=== PATIENT | male | born 1935 | race Caucasian/White ===

== ENCOUNTER 2017-12-14 12:25 | Emergency (ER) | payer MEDICARE, OTHER ==
[~2017-12-14] VITALS: Ht 170.2 cm; Wt 81.6 kg
[2017-12-14] MEDS ORDERED: SULFAMETH/TRIMETH 800/160 MG TABLET PO ONE (12:45)
[2017-12-14] MEDS ORDERED: SULFAMETH/TRIMETH 800/160 MG TABLET ONE (12:47)
--- NOTE | 2017-12-14 12:47 | NUR ---
PT WAS EVALUATED BY DR COPE. PT WAS D/C TO HOME. D/C INSTRUCTIONS GIVEN TO THE PT.
[2017-12-14 12:49] VITALS: BP 143/76
== END 2017-12-14 12:50 | disposition home or self-care (01) ==
LOC: ER 12:25
DX: S60.463D Insect bite (nonvenomous) of left middle finger, subsequent encounter (principal); L08.9 Local infection of the skin and subcutaneous tissue, unspecified; W57.XXXD Bitten or stung by nonvenomous insect and other nonvenomous arthropods, subsequent encounter
CPT/HCPCS: A4663

== ENCOUNTER 2018-01-01 12:26 | Emergency (ER) | payer MEDICARE, OTHER ==
[~2018-01-01] VITALS: Ht 172.7 cm; Wt 81.6 kg
[2018-01-01] MEDS ORDERED: diphenhydrAMINE 25 MG CAP PO ONE ×2 (13:26→13:35)
--- NOTE | 2018-01-01 13:26 | NUR ---
Dr agosto at the bedside for MSE.
[2018-01-01] MEDS ORDERED: CEPHALEXIN MONOHYDRATE 500 MG CAPSULE PO ONE (13:30)
[2018-01-01] MEDS ORDERED: DEXAMETHASONE SOD PHOSPHATE 4 MG INJ IM ONE (13:30)
[2018-01-01] MEDS ORDERED: DEXAMETHASONE SOD PHOSPHATE 10 MG INJ ONE (13:36)
[2018-01-01] MEDS ORDERED: CEPHALEXIN MONOHYDRATE 500 MG CAPSULE ONE (13:36)
--- NOTE | 2018-01-01 14:39 | NUR ---
PATIENT WAS CHECKED BY DR TERRELL. WILL BE DC HOME
--- NOTE | 2018-01-01 14:48 | NUR ---
Patient discharged to home in stable conditon. Written and verbal after care instructions given. Patient verbalizes understanding of instructions.
[2018-01-01 14:49] VITALS: BP 135/71
== END 2018-01-01 14:49 | disposition home or self-care (01) ==
LOC: ER 12:30
DX: T63.441A Toxic effect of venom of bees, accidental (unintentional), initial encounter (principal); Y92.89 Other specified places as the place of occurrence of the external cause; E11.9 Type 2 diabetes mellitus without complications; E78.00 Pure hypercholesterolemia, unspecified
CPT/HCPCS: 96372; 99283; A4663; J1100; Q0163

== ENCOUNTER 2018-03-12 13:03 | Emergency (ER) | payer MEDICARE, OTHER ==
[~2018-03-12] VITALS: Ht 170.2 cm; Wt 77.1 kg
--- NOTE | 2018-03-12 13:13 | NUR ---
at bedside to see and examine patient.
--- NOTE | 2018-03-12 13:37 | NUR ---
Dcd instructions and prescription given to pt. who verbalized understanding.
== END 2018-03-12 13:40 | disposition home or self-care (01) ==
LOC: ER 13:03
DX: T65.91XA Toxic effect of unspecified substance, accidental (unintentional), initial encounter (principal); E78.00 Pure hypercholesterolemia, unspecified; E11.9 Type 2 diabetes mellitus without complications; Y92.89 Other specified places as the place of occurrence of the external cause
CPT/HCPCS: A4663

== ENCOUNTER 2018-04-09 16:03 | Emergency (ER) | payer MEDICARE, OTHER ==
[~2018-04-09] VITALS: Ht 170.2 cm; Wt 77.1 kg
--- NOTE | 2018-04-09 16:20 | NUR ---
Dr Hawk at the bedside for MSE.
[2018-04-09] MEDS ORDERED: methylPREDNISolone SOD SUCC 125 MG/2 ML VIAL IV ONE (16:30)
[2018-04-09] MEDS ORDERED: FAMOTIDINE. 20 MG/2 ML VIAL IV ONE ×2 (16:30→16:33)
[2018-04-09] MEDS ORDERED: diphenhydrAMINE 50 MG/1 ML VIAL IV ONE (16:30)
[2018-04-09] MEDS ORDERED: diphenhydrAMINE 50 MG/1 ML VIAL ONE (16:31)
[2018-04-09] MEDS ORDERED: methylPREDNISolone SOD SUCC 125 MG/2 ML VIAL ONE (16:32)
--- NOTE | 2018-04-09 16:50 | NUR ---
Patient is resting comfortably in bed with eyes closed. NAD noted.
--- NOTE | 2018-04-09 17:24 | NUR ---
IV removed. Catheter intact and site benign. Pressure and 4x4 gauze applied to site. No bleeding noted.
[2018-04-09 17:38] VITALS: BP 122/70
--- NOTE | 2018-04-09 17:38 | NUR ---
Patient discharged to home in stable conditon. Written and verbal after care instructions given. Patient verbalizes understanding of instructions.
== END 2018-04-09 17:39 | disposition home or self-care (01) ==
LOC: ER 16:03
DX: T63.441A Toxic effect of venom of bees, accidental (unintentional), initial encounter (principal); E78.00 Pure hypercholesterolemia, unspecified; E11.9 Type 2 diabetes mellitus without complications; Y92.89 Other specified places as the place of occurrence of the external cause
CPT/HCPCS: 96374; 96375; 99284; J1200; J2930; J3490; A4663

== ENCOUNTER 2018-04-11 12:10 | Emergency (ER) | payer MEDICARE, OTHER ==
[~2018-04-11] VITALS: Ht 172.7 cm; Wt 81.6 kg
--- NOTE | 2018-04-11 12:18 | NUR ---
Patient discharged to home in stable conditon. Written and verbal after care instructions given. Patient verbalizes understanding of instructions.pt with caregiver.
== END 2018-04-11 12:20 | disposition home or self-care (01) ==
LOC: ER 12:10
DX: R21 Rash and other nonspecific skin eruption (principal); E78.00 Pure hypercholesterolemia, unspecified; E11.9 Type 2 diabetes mellitus without complications
CPT/HCPCS: A4663

== ENCOUNTER 2018-08-28 12:20 | Emergency (ER) | payer MEDICARE, OTHER ==
[~2018-08-28] VITALS: Ht 172.7 cm; Wt 63.5 kg
--- NOTE | 2018-08-28 12:30 | NUR ---
PT A/OX4, PRESENTS TO THE ER W/ SPOUSE AND CAREGIVER, C/O GLF LAST NIGHT. PT REPORTS HE TRIPPED OVER HIS DOG WHILE OUT FOR A WALK LAST NIGHT AND HAD A GLF IN HIS DRIVEWAY, RESULTING IN HEAD INJURY. FALL WAS WITNESSED BY CAREGIVER, AND NO LOC REPORTED. PT C/O BACK PAIN THAT STARTED LAST NIGHT, PROVOKED UPON MOVEMENT, ACHING IN QUALITY, RADIATES DOWN THE BACK, 7/10, CONSTANT. UPON ASSESSMENT, ABRASION ON R ELBOW AND HEMATOMA TO THE OCCIPITAL SCAL NOTED. VSS. PT DENIES C/P, SOB, N/V/D, DIZZINESS, HEADACHE.
--- NOTE | 2018-08-28 12:33 | NUR ---
ADA KLEIN AT BEDSIDE FOR MSE.
[2018-08-28] MEDS ORDERED: INSU100C SQ (12:43)
[2018-08-28] MEDS ORDERED: LEVO125T PO (12:43)
[2018-08-28] MEDS ORDERED: CARB-95 PO (12:43)
[2018-08-28] MEDS ORDERED: TAMS-3 PO (12:43)
[2018-08-28] MEDS ORDERED: INSU100V10 SQ (12:43)
[2018-08-28] MEDS ORDERED: ATOR10TA PO (12:43)
[2018-08-28] MEDS ORDERED: ACETAMINOPHEN ES 500 MG TABLET PO ONE (12:45)
[2018-08-28] MEDS ORDERED: IV NORMAL SALINE 250 ML IV ONE (12:45)
[2018-08-28] MEDS ORDERED: SWABABLE VALVE TRANSFER SET EA MC ONE (12:45)
[2018-08-28] MEDS ORDERED: IOHEXOL 300MG/ML 100 ML INFUS..BTL ONE (12:45)
--- NOTE | 2018-08-28 12:47 | NUR ---
AUDITOR TAX AT BEDSIDE.
[2018-08-28] MEDS ORDERED: ACETAMINOPHEN ES 500 MG TABLET ONE (12:50)
[2018-08-28 12:55] LABS: BASOPHILS % (AUTO) 0.1 % (0.0-2.0); EOSINOPHILS # (AUTO) 0.1 K/uL (0.0-0.7); EOSINOPHILS % (AUTO) 0.5 % (0.0-7.0); HEMATOCRIT 35.8 % (36.7-47.1); LYMPHOCYTES # (AUTO) 1.2 K/uL (20.0-40.0); LYMPHOCYTES % (AUTO) 10.4 % (20.5-51.5); MEAN CORPUSCULAR HEMOGLOBIN 31.2 uug (23.8-33.4); MEAN CORPUSCULAR HGB CONC 33 g/dL (32.5-36.3); MEAN CORPUSCULAR VOLUME 93.7 fL (73.0-96.2); MONOCYTES # (AUTO) 0.9 K/uL (2.0-10.0); MONOCYTES % (AUTO) 7.9 % (0.0-11.0); NEUTROPHILS # (AUTO) 9.1 K/uL (1.8-8.9); NEUTROPHILS % (AUTO) 81.1 % (38.5-71.5); PLATELET COUNT (AUTO) 184 K/uL (152-348); RED BLOOD CELL COUNT(AUTO) 3.83 MIL/uL (4.06-5.63); WHITE BLOOD COUNT (AUTO) 11.2 K/uL (3.6-10.2)
--- NOTE | 2018-08-28 12:55 | NUR ---
REVIEW NURSE AT BEDSIDE.
[2018-08-28 13:05] LABS: BILIRUBIN,DIRECT 0.2 mg/dL (0.0-0.2); BILIRUBIN,TOTAL 0.9 mg/dL (0.2-1.0); TOTAL PROTEIN, SERUM 6.7 g/dL (6.4-8.2)
--- NOTE | 2018-08-28 13:21 | NUR ---
PT TAKEN TO RADIOLOGY FOR CT SCAN.
--- NOTE | 2018-08-28 13:40 | NUR ---
PT BACK IN ER FROM RADIOLOGY.
--- NOTE | 2018-08-28 14:55 | NUR ---
Patient discharged to home in stable conditon. Written and verbal after care instructions given. Patient verbalizes understanding of instructions. ALL BELONGINGS W/ PT. PT SELF-AMBULATED W/O DIFFICULTY. PT D/C UNDER CARE OF SPOUSE AND HISTORIC SITE ADMINISTRATOR.
[2018-08-28 14:56] VITALS: BP 115/79
== END 2018-08-28 14:57 | disposition home or self-care (01) ==
LOC: ER 12:20
DX: S00.03XA Contusion of scalp, initial encounter (principal); S40.211A Abrasion of right shoulder, initial encounter; M54.5 Low back pain; M79.645 Pain in left finger(s); E11.9 Type 2 diabetes mellitus without complications; E78.5 Hyperlipidemia, unspecified; E03.9 Hypothyroidism, unspecified; Z79.4 Long term (current) use of insulin; Z79.899 Other long term (current) drug therapy; Z90.49 Acquired absence of other specified parts of digestive tract; W01.0XXA Fall on same level from slipping, tripping and stumbling without subsequent striking against object, initial encounter; Y93.89 Activity, other specified; Y92.89 Other specified places as the place of occurrence of the external cause; Y99.8 Other external cause status
CPT/HCPCS: 36415; 70450; 71045; 72100; 72125; 73030; 73080; 73130; 80076; 85025; 85730; 93005; 99284; Q9967; A4663; A9150; J7050

== ENCOUNTER 2018-08-29 10:03 | Emergency (ER) | payer MEDICARE, OTHER ==
[~2018-08-29] VITALS: Ht 172.7 cm; Wt 81.6 kg
[~2018-08-29 10:03] MED LIST: ATOR10TA PO; CARB-95 PO; INSU100C SQ; INSU100V10 SQ; LEVO125T PO; TAMS-3 PO
--- NOTE | 2018-08-29 10:29 | NUR ---
PT IS IN ROOM #2A. DR COPE EVALUATED THE PT.
--- NOTE | 2018-08-29 11:24 | NUR ---
PT WAS D/C'd TO HOME. D/C INSTRUCTIONS GIVEN TO THE PT AND TO HIS RELATIVES.
[2018-08-29 11:25] VITALS: BP 152/81
== END 2018-08-29 11:26 | disposition home or self-care (01) ==
LOC: ER 10:03
DX: E11.649 Type 2 diabetes mellitus with hypoglycemia without coma (principal); E78.00 Pure hypercholesterolemia, unspecified; E78.5 Hyperlipidemia, unspecified; E03.9 Hypothyroidism, unspecified; Z90.49 Acquired absence of other specified parts of digestive tract; Z79.899 Other long term (current) drug therapy; Z79.4 Long term (current) use of insulin
CPT/HCPCS: A4663

== ENCOUNTER 2018-11-19 15:23 | Emergency (ER) | payer MEDICARE, OTHER ==
[~2018-11-19] VITALS: Ht 172.7 cm; Wt 81.6 kg
[2018-11-19 17:37] LABS: BASOPHILS # (AUTO) 0.1 K/uL (0.0-8.0); BASOPHILS % (AUTO) 0.5 % (0.0-2.0); EOSINOPHILS # (AUTO) 0.4 K/uL (0.0-0.7); EOSINOPHILS % (AUTO) 3.9 % (0.0-7.0); HEMATOCRIT 38.7 % (36.7-47.1); HEMOGLOBIN 12.8 g/dL (12.5-16.3); LYMPHOCYTES # (AUTO) 2.3 K/uL (20.0-40.0); LYMPHOCYTES % (AUTO) 24.2 % (20.5-51.5); MEAN CORPUSCULAR HEMOGLOBIN 30.8 uug (23.8-33.4); MEAN CORPUSCULAR HGB CONC 33 g/dL (32.5-36.3); MEAN CORPUSCULAR VOLUME 93.1 fL (73.0-96.2); MONOCYTES # (AUTO) 0.8 K/uL (2.0-10.0); MONOCYTES % (AUTO) 8.5 % (0.0-11.0); NEUTROPHILS % (AUTO) 62.9 % (38.5-71.5); PLATELET COUNT (AUTO) 203 K/uL (152-348); RED BLOOD CELL COUNT(AUTO) 4.16 MIL/uL (4.06-5.63); WHITE BLOOD COUNT (AUTO) 9.6 K/uL (3.6-10.2)
[2018-11-19 17:43] LABS: CARBON DIOXIDE 28 mmol/L (21-32); CHLORIDE 109 mmol/L (98-107); GLUCOSE 71 mg/dL (74-106); POTASSIUM 3.8 mmol/L (3.5-5.1); UREA NITROGEN, BLOOD 17 mg/dL (7-18)
[2018-11-19 17:46] LABS: *BILIRUBIN,URIN NEGATIVE (NEGATIVE); *BLOOD, URINE NEGATIVE (NEGATIVE); *CLARITY,URINE CLEAR (CLEAR); *COLOR,URINE YELLOW (YELLOW); *KETONES,URINE NEGATIVE (NEGATIVE); *UROBILINOGEN,URINE 0.2 E.U./dl (NORMAL); LEUKOCYTE ESTERASE ,URINE NEGATIVE (NEGATIVE); NITRITE, URINE NEGATIVE (NEGATIVE); UGLUCOSE NEGATIVE (NEGATIVE)
[2018-11-19 17:49] LABS: ALANINE AMINOTRANSFERASE 19 U/L (16-63); ALKALINE PHOSPHATASE 97 U/L (50-136); ASPARTATE AMINOTRANSFERASE 17 U/L (15-37); BILIRUBIN,DIRECT 0.1 mg/dL (0.0-0.2); BILIRUBIN,TOTAL 0.5 mg/dL (0.2-1.0); TOTAL PROTEIN, SERUM 7.5 g/dL (6.4-8.2)
--- NOTE | 2018-11-19 18:42 | NUR ---
[facility] FOOD PROVIDED FOR PT. PT WEB PRESS OPERATOR AT BESIDE TO HELP THE PT TO EAT.
--- NOTE | 2018-11-19 18:50 | NUR ---
Patient discharged to home in stable conditon. Written and verbal after care instructions given. Patient verbalizes understanding of instructions.PT ACCOMPANIED BY TRANSPORTATION SPECIALIST. COPY OF AL [employer] STUDIES PROVIDED FOR PT. PT IS FOLLOWING UP WITH ACCOUNT MANAGER EDUCATION TOMORROW.
[2018-11-19 18:51] VITALS: BP 119/61
== END 2018-11-19 18:51 | disposition home or self-care (01) ==
LOC: ER 15:23
DX: S13.4XXA Sprain of ligaments of cervical spine, initial encounter (principal); S49.91XA Unspecified injury of right shoulder and upper arm, initial encounter; E78.00 Pure hypercholesterolemia, unspecified; E11.9 Type 2 diabetes mellitus without complications; E78.5 Hyperlipidemia, unspecified; Z79.4 Long term (current) use of insulin; Z79.899 Other long term (current) drug therapy; W01.0XXA Fall on same level from slipping, tripping and stumbling without subsequent striking against object, initial encounter; Y93.89 Activity, other specified; Y92.89 Other specified places as the place of occurrence of the external cause; Y99.8 Other external cause status
CPT/HCPCS: 36415; 70030-TC; 71045; 72125; 73030; 85025; 85730; 87086; 93005; A4663

== ENCOUNTER 2019-03-27 13:45 | Emergency (ER) | payer MEDICARE, OTHER ==
[~2019-03-27] VITALS: Ht 167.6 cm; Wt 83.9 kg
--- NOTE | 2019-03-27 14:13 | NUR ---
PATIENT WAS SEEN BY .
[2019-03-27 14:33] LABS: BASOPHILS % (AUTO) 0.4 % (0.0-2.0); EOSINOPHILS # (AUTO) 0.3 K/uL (0.0-0.7); EOSINOPHILS % (AUTO) 3.1 % (0.0-7.0); HEMATOCRIT 35.1 % (36.7-47.1); HEMOGLOBIN 11.6 g/dL (12.5-16.3); LYMPHOCYTES # (AUTO) 1.7 K/uL (20.0-40.0); LYMPHOCYTES % (AUTO) 18.5 % (20.5-51.5); MEAN CORPUSCULAR HEMOGLOBIN 32.6 uug (23.8-33.4); MEAN CORPUSCULAR HGB CONC 33 g/dL (32.5-36.3); MEAN CORPUSCULAR VOLUME 98.5 fL (73.0-96.2); MONOCYTES # (AUTO) 0.6 K/uL (2.0-10.0); MONOCYTES % (AUTO) 6.4 % (0.0-11.0); NEUTROPHILS # (AUTO) 6.7 K/uL (1.8-8.9); NEUTROPHILS % (AUTO) 71.6 % (38.5-71.5); PLATELET COUNT (AUTO) 245 K/uL (152-348); RED BLOOD CELL COUNT(AUTO) 3.56 MIL/uL (4.06-5.63); WHITE BLOOD COUNT (AUTO) 9.4 K/uL (3.6-10.2)
[2019-03-27 14:37] LABS: CREATININE 1.1 mg/dL (0.6-1.3); POTASSIUM 4.4 mmol/L (3.5-5.1)
[2019-03-27 14:50] LABS: BILIRUBIN,DIRECT 0.2 mg/dL (0.0-0.2); BILIRUBIN,TOTAL 0.6 mg/dL (0.2-1.0); TOTAL PROTEIN, SERUM 7.1 g/dL (6.4-8.2)
--- NOTE | 2019-03-27 15:33 | NUR ---
DC, RX AND FOLLOW UP INSTRUCTIONS GIVEN AND EXPLAINED TO PATIENT AND CAREGIVER WHO STATE THEY UNDERSTAND ALL INSTRUCTIONS.
== END 2019-03-27 15:39 | disposition home or self-care (01) ==
LOC: ER 13:45
DX: R04.2 Hemoptysis (principal); J20.9 Acute bronchitis, unspecified; I16.0 Hypertensive urgency; E86.0 Dehydration; D64.9 Anemia, unspecified; N17.9 Acute kidney failure, unspecified; E11.65 Type 2 diabetes mellitus with hyperglycemia; E78.00 Pure hypercholesterolemia, unspecified; E03.9 Hypothyroidism, unspecified; Z90.49 Acquired absence of other specified parts of digestive tract; Z79.4 Long term (current) use of insulin; Z79.899 Other long term (current) drug therapy
CPT/HCPCS: 36415; 70030-TC; 71046; 85025; 85730; A4663